=== PATIENT | female | born 1965 | race Caucasian/White ===

== ENCOUNTER 2019-02-13 11:59 | Day surgery (SDC) | payer OTHER ==
[~2019-02-13 11:59] MED LIST: Buffered Lidocaine 1% SYRIN* 1 ML/SYRINGE INTRADERM ONE; Famotidine IV* 10 MG/ML 2 ML (20 mg) IV ONE; Lactated Ringers 1000 ML Bag* 1,000 ML IV SCH
[2019-02-13] MEDS ORDERED: Famotidine IV* 10 MG/ML 2 ML (20 mg) ONE (12:15)
[2019-02-13] MEDS ORDERED: Propofol* 10 MG/ML 20 ML BTL ONE ×2 (12:30→13:20)
[2019-02-13] MEDS ORDERED: KETAMINE HCL* 50 MG/ML 10 ML VIAL ONE (12:30)
[2019-02-13] MEDS ORDERED: fentaNYL* 50 MCG/ML 2 ML VIAL (100 MCG VIAL) ONE (12:30)
[2019-02-13] MEDS ORDERED: Ondansetron INJ* 2 MG/ML VIAL ONE (12:30)
[2019-02-13] MEDS ORDERED: Lidocaine 2% PF * 5 ML VIAL ONE (12:30)
[2019-02-13] MEDS ORDERED: Midazolam* 1 MG/ML 10 ML VIAL (10 MG) ONE (12:31)
[2019-02-13] MEDS ORDERED: Levalbuterol 0.63MG/3ML NEB* UNIT OF USE INH PRN (12:45)
[2019-02-13] MEDS ORDERED: fentaNYL* 50 MCG/ML 2 ML VIAL (100 MCG VIAL) IV PRN (12:45)
[2019-02-13] MEDS ORDERED: Naloxone* 0.4 MG/ML 1 ML VIAL IV PRN (12:45)
[2019-02-13] MEDS ORDERED: Ondansetron INJ* 2 MG/ML VIAL IV PRN (12:45)
[2019-02-13] MEDS ORDERED: Levalbuterol 0.63MG/3ML NEB* UNIT OF USE INH ONE (13:42)
[2019-02-13 14:33] VITALS: BP 156/81
--- NOTE | 2019-02-13 19:43 | PRO ---
CC: Primary Care Physician * ESOPHAGOGASTRODUODENOSCOPY AND COLONOSCOPY REPORT: DATE OF PROCEDURE: 02/13/19 - [facility] INDICATION FOR PROCEDURE: Dysphagia, average risk screening colonoscopy. PROCEDURES PERFORMED: Complete esophagogastroduodenoscopy with biopsies and complete colonoscopy to the cecum with biopsy polypectomy. MEDICATIONS GIVEN: Please see Anesthesia record. DESCRIPTION OF PROCEDURE: After the EGD and colonoscopy procedures including the risks, benefits, and alternatives with the risks not limited to perforation , surgery, missed lesions, and/or were explained to the patient, written informed consent was obtained, IV medication was given, and a bite-block was placed between the teeth. The adult Olympus gastroscope was then inserted into the patient's oropharynx, into the tubular esophagus. No stricture or narrowing was appreciated. There was a slightly prominent aortic arch, but otherwise unremarkable in terms of luminal dimensions. The scope was advanced to the distal esophagus. There was some mild reflux. I did take biopsies of this. In addition, I took biopsies in the mid esophagus to rule out EoE. The scope was advanced through the lower esophageal sphincter into the stomach. Direct views revealed scant gastritis in the antrum. This was biopsied for CLOtesting. On retroflexion, the views were grossly normal. The scope was then advanced though the widely patent pylorus into the duodenal bulb, C-loop, and distal duodenum. These were all normal in appearance. The scope was then removed from the patient. She tolerated the procedure well. She was then rotated and given additional IV sedation medication by the anesthesia service. A rectal exam was then performed. It was unremarkable. Next, an adult Olympus colonoscope was then inserted into the patient's rectum and advanced very carefully through the entirety of the colon and into the cecal base. Cecal base was carefully inspected and normal in appearance. A photograph was taken of the cecal cap. The terminal ileal valve was identified and normal in appearance. The preparation was good. Over the next 10 minutes, the scope was carefully withdrawn. In the cecum, a small polyp was removed with biopsy polypectomy in entirety; an additional polyp in the descending colon was removed with biopsy polypectomy in entirety; and finally in the rectum, an additional polyp was removed with biopsy polypectomy in entirety. On return to the rectum, the other direct views were normal. On retroflexion, the views were normal as well. The scope was then removed from the patient. She tolerated the procedures well. She returned to the recovery room in stable condition. IMPRESSION: 1. Complete esophagogastroduodenoscopy with biopsies. 2. No stricturing or narrowing to the esophagus. Biopsies taken of the mid and distal to rule out eosinophilic esophagitis. 3. Mild gastritis, biopsied for CLOtesting. 4. Complete colonoscopy to the cecum with biopsy polypectomy x3 as above. 5. Good prep. RECOMMENDATIONS: Consider modified barium swallow if ongoing dysphagia. Await results of biopsies. In addition, we would recommend a repeat colonoscopy in 3 to 5 years pending the pathology. She can follow up with ROBERTO Cadet , in the office as needed. [id number]/[facility] #: [id number] ANGEL
== END 2019-02-13 14:48 | disposition home or self-care (01) ==
LOC: OR 11:59
PROVIDERS: ATTEND Internal Medicine Gastroenterology
DX: R13.10 Dysphagia, unspecified (principal); K21.9 Gastro-esophageal reflux disease without esophagitis; Z12.11 Encounter for screening for malignant neoplasm of colon; K29.70 Gastritis, unspecified, without bleeding; K63.5 Polyp of colon; K62.1 Rectal polyp; Z87.891 Personal history of nicotine dependence
CPT/HCPCS: 87077; 88305; J2250; J2405; J2704; J3010